=== PATIENT | male | born 1975 | race Caucasian/White ===

== ENCOUNTER 2022-02-05 01:19 | Observation (INO) ==
[2022-02-05 02:19] LABS: Basophils # 0.1 K/mcL (0.0-0.2); Basophils % 0.8 %; Eosinophils # 0.1 K/mcL (0.0-0.6); Eosinophils % 1.3 %; Hematocrit 50.1 % (37.5-50.1); Immature Granulocytes % 0.8 % (0-4); Lymphocytes % 33.1 %; Mean Corpuscular HGB Conc 33.9 g/dL (31.6-35.5); Mean Corpuscular Hemoglobin 27.6 pg (28.0-33.3); Mean Corpuscular Volume 81.2 fL (83.0-100.0); Mean Platelet Volume 10.3 fL (9.4-12.4); Monocytes # 0.6 K/mcL (0.0-1.3); Monocytes % 6.4 %; Neutrophils # 5.3 K/mcL (1.6-8.9); Platelet Count 242 K/mcL (140-400); Red Blood Count 6.17 M/mcL (4.19-5.50); Red Cell Distribution Width 13.7 % (11.5-14.5); Segmented Neutrophils % 57.6 %; White Blood Count 9.1 K/mcL (4.3-11.1)
[2022-02-05 02:28] LABS: Prothrombin Time 11.1 Seconds (9.4-12.1)
[2022-02-05 02:31] LABS: Activated Partial Thrombo Time 32.5 Seconds (26.0-36.0)
[2022-02-05 02:39] LABS: BUN/Creatinine Ratio 13 (6-26); Blood Urea Nitrogen 12 mg/dL (6-20); Calcium 9.3 mg/dL (8.6-10.3); Carbon Dioxide 24 mEq/L (23-29); Chloride 103 mEq/L (98-107); Glucose 105 mg/dL (70-105); Osmolality,Calculated 280 (280-300); Potassium 3.8 mEq/L (3.5-5.1); Sodium 135 mEq/L (136-145); Troponin I < 0.03 ng/mL (< 0.04); eGFR For African Americans > 60 (> 60); eGFR For Non-African Americans > 60 (> 60)
[2022-02-05] MEDS ORDERED: Aspirin 325 MG TABLET PO ONE (02:55)
[2022-02-05] MEDS ORDERED: Nitroglycerin 0.4 MG TAB.SUBL SL PRN (02:55)
[2022-02-05] MEDS ORDERED: Acetaminophen 325 MG TABLET PO PRN (05:15)
[2022-02-05] MEDS ORDERED: Melatonin 3 MG TABLET PO PRN (05:15)
[2022-02-05] MEDS ORDERED: Naloxone 0.4 MG/ML INJ IVP PRN (05:15)
[2022-02-05] MEDS ORDERED: Ondansetron ODT 4 MG TAB.RAPDIS SL PRN (05:15)
[2022-02-05] MEDS ORDERED: *HR* HYDROcodone/Acet 5/325 mg TABLET PO PRN (05:15)
[2022-02-05] MEDS ORDERED: *HR* OxyCODONE Immed Rel 5 MG TABLET PO PRN (05:15)
[2022-02-05] MEDS ORDERED: Dextrose Gel 15 GM/37.5 ML TUBE PO PRN ×2 (05:17)
[2022-02-05] MEDS ORDERED: *HR* Dextrose 50 % in Water (Syg) 50 ML SYRINGE IVP PRN (05:17)
[2022-02-05] MEDS ORDERED: D5% in Water 1,000 ML IVC PRN (05:17)
[2022-02-05] MEDS ORDERED: Perflutren Lipid Microsphere 1.3 ML in 0.9 % Sodium Chloride 8.7 ML IVP PRN (05:18)
[2022-02-05] MEDS: Insulin LISPRO 300 UNITS/3 ML VIAL SUBQ SCH ×2 (05:26→12:24)
[2022-02-05 05:53] VITALS: O2SAT 95
[2022-02-05] MEDS ORDERED: Regadenoson 0.4 MG/5 ML SYRINGE IVP ONE (06:16)
[2022-02-05 06:48] LABS: Chol/HDL Ratio 5.1 (0-4.9); Cholesterol 164 mg/dL (< 200); HDL Cholesterol 32 mg/dL (40-59); Magnesium 1.9 mg/dL (1.6-2.6); Phosphorous 3.2 mg/dL (2.7-4.5); Triglycerides 591 mg/dL (< 150)
[2022-02-05 08:31] LABS: Estimated Average Glucose 146 mg/dl; Hemoglobin A1C 6.7 %
[2022-02-05 12:23] VITALS: BP 149/88; PULSE 81; TEMP 98.1
[2022-02-06] MEDS ORDERED: Aspirin 81 MG TAB.CHEW PO SCH (09:00)
== END 2022-02-05 14:11 | disposition home or self-care (01) ==
LOC: 3BNU 01:19 → EMEROOARM 01:19 → SUATTDRO 05:00 → 3BNU 05:18
PROVIDERS: ADMIT Internal Medicine; ATTEND Internal Medicine